=== PATIENT | male | born 1945 | race Caucasian/White ===

== ENCOUNTER → 2021-03-04 | Outpatient (CLI) | payer MEDICARE ==
[~2021-03-04] VITALS: Ht 172.7 cm; Wt 76.9 kg
[~2021-03-04] MED LIST: APIX5TAB PO
[2021-03-04 10:06] VITALS: BP 169/84
== END | disposition home or self-care (01) ==
LOC: SRCNTR 09:49
PROVIDERS: ATTEND Internal Medicine
DX: R91.8 Other nonspecific abnormal finding of lung field (principal); I82.409 Acute embolism and thrombosis of unspecified deep veins of unspecified lower extremity; Z85.46 Personal history of malignant neoplasm of prostate
CPT/HCPCS: G0463; Z7500